=== PATIENT | female | born 2005 | race Caucasian/White ===

== ENCOUNTER 2024-07-30 20:33 | Emergency (ER) | payer MEDICAID, SELFPAY ==
[2024-07-30 20:36] VITALS: BMI 19.7
[2024-07-30 20:45] VITALS: BP 138/77; PULSE 77; RESP 18; TEMP 36.7; O2SAT 100
--- NOTE | 2024-07-30 20:51 | EKG_ITS ---
[facility] Test Date: 2024-07-30 Pat Name: Carmela Gunderson Department: Room: - Gender: Female Trainer: : 2005 Requested By: Romel Vivas ([facility]) Order Number: [id number] Reading MD: Romel Vivas ([facility]) Measurements Intervals [place]ickery Rate: 81 P: 35 ID: 145 QRS: 33 QRSD: 102 T: 46 QT: 344 QTc: 402 Interpretive Statements SINUS RHYTHM WITH SINUS ARRHYTHMIA No previous ECG available for comparison /store/S0/[id number]
--- NOTE | 2024-07-30 20:53 | PD.EDRME ---
Rapid Medical Screening Exam E Arrival date/time: 07/30/24 20:33 19-year-old female past medical history of anxiety presents emergency department complaining of electrical shocks that go to my chest and throughout my body. Patient also endorses dizziness and shortness of breath. Patient reports symptoms started after she started Wellbutrin medication for anxiety for 5 days with last dose 2 days ago. Chief Complaint: Chest Pain Time Seen by Provider: 07/30/24 20:43 Vital signs: Vital Signs Temperature 98.1 F 07/30/24 20:45 Pulse Rate 77 07/30/24 20:45 Respiratory Rate 18 07/30/24 20:45 Blood Pressure 138/77 H 07/30/24 20:45 Pulse Oximetry (%) 100 07/30/24 20:45 Oxygen Delivery Method Room Air 07/30/24 20:45 Vital signs reviewed by provider: Yes
[2024-07-30 21:24] LABS: Basophils # (Auto) 0.1 Thou/mm3 (0.0-0.2); Basophils % (Auto) 1 % (0-2.5); Eosinophils # (Auto) 0.1 Thou/mm3 (0.0-0.5); Eosinophils % (Auto) 1 % (0-10); Hematocrit 42.7 % (36.0-46.0); Hemoglobin 15.1 g/dL (12.0-16.0); Immature Granulocytes % (Auto) 0 % (0-0); Immature Granulocytes Auto 0.03 Thou/mm3 (0.00-0.00); Lymphocytes # (Auto) 2.9 Thou/mm3 (1.0-4.8); Lymphocytes % (Auto) 31 % (10-50); Mean Corpuscular HGB Conc 35.4 g/dl (31.0-37.0); Mean Corpuscular Hemoglobin 31.5 pg (25.0-35.0); Mean Corpuscular Volume 89 fL (80-100); Monocytes # (Auto) 0.7 Thou/mm3 (0.0-0.8); Monocytes % (Auto) 7 % (0-12); Neutrophils # (Auto) 5.6 Thou/mm3 (1.8-7.7); Neutrophils % (Auto) 60 % (37-80); Nucleated Red Blood Cell % 0 /100 WBC (0); Platelet Count 240 Thou/mm3 (140-440); RDW Standard Deviation 41.8 fL (36.4-46.3); White Blood Count 9.3 Thou/mm3 (3.6-11.0)
[2024-07-30 21:41] LABS: Collection Type, Urine Clean Catch
[2024-07-30 21:43] LABS: Alanine Aminotransferase 25 U/L (10-49); Albumin, Serum 5.1 gm/dL (3.5-5.0); Anion Gap 12 (7-16); Aspartate Amino Transferase 27 U/L (0-34); BUN/Creatinine Ratio 14 Ratio (12-20); Bilirubin,Total 1.5 mg/dL (0.3-1.2); Blood Urea Nitrogen 11 mg/dL (9-23); Calcium 10.5 mg/dL (8.3-10.6); Calcium (Corrected) 10.5 mg/dL (8.5-10.1); Carbon Dioxide 21.9 mMol/L (20.0-31.0); Chloride 105 mMol/L (98-107); Creatinine (Component) 0.8 mg/dL (0.6-1.3); Estimated Creatinine Clearance 91.6 mL/min (>60); Glucose 96 mg/dL (74-106); Osmolality,Calculated 276 (275-295); Potassium 3.8 mMol/L (3.4-5.1); Sodium 139 mMol/L (136-145); Total Protein 8.2 gm/dL (5.7-8.2); eGFR > 60 See Note
[2024-07-30 21:44] LABS: Albumin/Globulin Ratio 1.6 (1.2-2.2); Alkaline Phosphatase 74 U/L (46-116); Globulin 3.1 gm/dL (2.3-3.5)
[2024-07-30 21:53] LABS: Bilirubin,Urine Negative (Negative); Blood,Urine 1+ (Negative); Clarity,Urine Clear (Clear/Hazy); Color,Urine Lt-Yellow (Lt Yel-Yel); Culture Indicated,Urine Not Indicated; Glucose, Urine Negative (Negative); Ketones,Urine 1+ (Negative); Leukocyte Esterase,Urine Positive (Negative); Nitrite,Urine Negative (Negative); Protein,Urine Negative (Neg - Trace); RBC,Urine 2 /hpf (0-3); Specific Gravity,Urine 1.012 (1.001-1.035); Squamous Epithelial Cell,Urine 2 /hpf (0-5); Urobilinogen,Urine Negative mg/dL (0.0-1.0); WBC,Urine 3 /hpf (0-5)
[2024-07-30 21:57] LABS: HCG Qualitative,Urine Negative
[2024-07-30 22:51] LABS: Amphetamine/Methamp Scrn,U Negative (Negative); Barbiturate Screen,Urine Negative (Negative); Benzodiazepines Screen,Urine Negative (Negative); Benzoylecgonine Screen, Ur Negative (Negative); Fentanyl Screen,Urine Negative (Negative); Opiate Screen,Urine Negative (Negative); THC Screen,Urine Negative (Negative)
--- NOTE | 2024-07-30 23:06 | EDNOTE_ITS ---
ED General RME/HPI General Chief complaint: Chest Pain Stated complaint: Possible allergic reaction to Welbutrin Time Seen by Provider: 07/30/24 20:43 Source: patient Arrival date/time: 07/30/24 20:33 19-year-old female past medical history of anxiety presents emergency department complaining of electrical shocks that go to my chest and throughout my body. Patient also endorses dizziness and shortness of breath. Patient reports symptoms started after she started Wellbutrin medication for anxiety for 5 days with last dose 2 days ago. Mode of arrival: ambulatory Limitations: no limitations RME / HPI RME / HPI narrative: 07/30/24 20:33 19-year-old female past medical history of anxiety presents emergency department complaining of electrical shocks that go to my chest and throughout my body. Patient also endorses dizziness and shortness of breath. Patient reports symptoms started after she started Wellbutrin medication for anxiety for 5 days with last dose 2 days ago. Related Data Allergies Allergy/AdvReac Type Severity Reaction Status Date / Time No Known Allergies Allergy Verified 07/30/24 20:35 Review of Systems Review of Systems Systems Reviewed: All systems reviewed, normal except as documented Constitutional Constitutional: Reports system reviewed and no additional complaints, except as documented, Denies body ache(s), Denies chills and Denies fever(s) Eyes Eyes: Reports system reviewed and no additional complaints, except as documented and Denies change in vision ENT Ears, Nose, Mouth, and Throat: Reports system reviewed and no additional complaints, except as documented, Denies disequilibrium, Denies dizziness, Denies sore throat and Denies vertigo Cardiovascular Cardiovascular: Reports system reviewed and no additional complaints, except as documented, Reports chest pain and Reports dyspnea Respiratory Respiratory: Reports system reviewed and no additional complaints, except as documented, Denies chest congestion, Denies cough and Reports dyspnea Gastrointestinal Gastrointestinal: Reports system reviewed and no additional complaints, except as documented, Denies abdominal pain, Denies nausea and Denies vomiting Musculoskeletal Musculoskeletal: Reports system reviewed and no additional complaints, except as documented, Denies abnormal gait and Denies arthralgias Integumentary/Breasts Skin/Breast: Reports system reviewed and no additional complaints, except as documented, Denies erythema, Denies rash and Denies wounds Neurologic Neurologic: Reports system reviewed and no additional complaints, except as documented, Denies abnormal gait, Denies disequilibrium, Denies dizziness and Denies vertigo Past Medical History Social History SMOKING STATUS: Never smoker ED Exam General Limitations: Present no limitations General appearance: Present alert and in no apparent distress Head Head exam: Present atraumatic Eye Eye exam: Present normal appearance, PERRL and EOMI ENT ENT exam: Present normal exam, normal oropharynx and mucous membranes moist Neck Neck exam: Present normal inspection, full ROM and trachea midline Chest Chest inspection: Present normal inspection and symmetric chest wall rise Respiratory Respiratory exam: Present normal lung sounds bilaterally Cardiovascular Cardiovascular exam: Present regular rate, normal rhythm and normal heart sounds Abdominal Exam Abdominal exam: Present soft and normal bowel sounds Extremities Exam Extremities exam: Present normal inspection and full ROM Back Exam Back exam: Present normal inspection and full ROM Neurological Exam Neurological exam: Present alert, oriented X3 and CN II-XII intact Psychiatric Psychiatric exam: Present normal affect and normal mood Skin Skin exam: Present warm, dry, intact and normal color Course Quality Measures none Orders Category Date Time Status EKG (ED ONLY) *Do not use* NOW Care 07/30/24 20:51 Completed EKG (ED Only) Stat Exams 07/30/24 20:51 Draft CBC Stat Lab 07/30/24 21:05 Completed CMP [Comprehensive Metabolic Panel] Stat Lab 07/30/24 21:05 Completed Drug Screen,Urine Stat Lab 07/30/24 21:36 Completed HCG Qualitative,Urine Stat Lab 07/30/24 21:36 Completed Urinalysis, C/S if Indicated Stat Lab 07/30/24 21:36 Completed Vital Signs Vital signs: Vital Signs Temperature 98.1 F 07/30/24 20:45 Pulse Rate 77 07/30/24 20:45 Respiratory Rate 18 07/30/24 20:45 Blood Pressure 138/77 H 07/30/24 20:45 Pulse Oximetry (%) 100 07/30/24 20:45 Oxygen Delivery Method Room Air 07/30/24 20:45 100% room air within normal limits Procedures -ED EKG Interpretation #1: Date of EK07/30/24 Time of EK:02 Rate: 81 Interpretation: Interpreted by me EKG Impression: Normal sinus rhythm, No acute ST-T changes, No ectopy, No ischemic changes and Normal QRS MDM Patient data External records reviewed:: [facility] previous records Clinical information provided by:: patient and parent Social determinants that could affect healthcare access:: none Patient has the following chronic illnesses:: See chart How is presenting disease/condition affected by chronic disease/condition?: u neffected by Evaluation data The following diagnostics were reviewed and interpreted by me:: lab results and EKG tracing(s) Lab and/or radiology exams considered but not ordered:: Ordered Interpretation Summary: Interpreted by me Medications Medications considered but not ordered:: N/A Medication administrations:: n/a Consultations Consultation(s) initiated? (list below): No Diagnosis Differential Diagnosis ED Complaint MDM: Noncardiac chest pain, gallstones, pneumonia Most likely diagnosis given after review of the tests above:: Medication side effect Admission Indicated Admission indicated?: not indicated Explain why admission is indicated or not indicated:: No admission criteria Admission Request Was there a request for admission?: No Disposition Plan Disposition Plan: Discharge Discharge Attestation Discharge Attestation: The patient and all family members were given an opportunity to ask questions and understood the discharge instructions. Discharge instructions specifically effects, indications for sooner follow up or return to the emergency department, and the expected course of current diagnosis. Patient condition: Stable Medical Decision Making MDM Narrative MDM Narrative: 19-year-old female past medical history of anxiety presents emergency department complaining of electrical shocks that go to my chest and throughout my body. Patient also endorses dizziness and shortness of breath. Patient reports symptoms started after she started Wellbutrin medication for anxiety for 5 days with last dose 2 days ago. CBC unremarkable for any leukocytosis or anemia. CMP unremarkable other than total bili 1.5 patient is abdomen is soft and nontender. EKG sinus rhythm. No adventitious lung sounds on auscultation. Urinalysis and toxicology unremarkable. Patient GCS of 15 with no SI or HI. Patient likely having side effects from previously taking Wellbutrin. Patient appears nontoxic and is hemodynamically stable. Differential Diagnosis Differential Diagnosis: Noncardiac chest pain, gallstones, pneumonia Lab Data 07/30/24 21:05 07/30/24 21:05 Labs: Lab Results 07/30/24 07/30/24 Range/Units 21:05 21:36 WBC 9.3 (3.6-11.0) Thou/mm3 RBC 4.80 (4.00-5.20) Miln/mm3 Hgb 15.1 (12.0-16.0) g/dL Hct 42.7 (36.0-46.0) % MCV 89 (80-100) fL MCH 31.5 (25.0-35.0) pg MCHC 35.4 (31.0-37.0) g/dl RDW Std Deviation 41.8 (36.4-46.3) fL Plt Count 240 (140-440) Thou/mm3 Neut % (Auto) 60 (37-80) % Lymph % (Auto) 31 (10-50) % [place] % (Auto) 7 (0-12) % Eos % (Auto) 1 (0-10) % Baso % (Auto) 1 (0-2.5) % Neut # (Auto) 5.6 (1.8-7.7) Thou/mm3 Lymph # (Auto) 2.9 (1.0-4.8) Thou/mm3 [place] # (Auto) 0.7 (0.0-0.8) Thou/mm3 Eos # (Auto) 0.1 (0.0-0.5) Thou/mm3 Baso # (Auto) 0.1 (0.0-0.2) Thou/mm3 Immature Gran # (Auto) 0.03 H (0.00-0.00) Thou/mm3 Absolute Nucleated RBC 0.00 (0.00-0.00) Thou/mm3 Immature Gran % 0 (0-0) % Nucleated RBC % 0 (0) /100 WBC Sodium 139 (136-145) mMol/L Potassium 3.8 (3.4-5.1) mMol/L Chloride 105 (98-107) mMol/L Carbon Dioxide 21.9 (20.0-31.0) mMol/L Anion Gap 12 (7-16) BUN 11 (9-23) mg/dL Creatinine 0.8 (0.6-1.3) mg/dL Estim Creat Clear Calc 91.6 (>60) mL/min eGFR > 60 (60 - ) See Note BUN/Creatinine Ratio 14 (12-20) Ratio Glucose 96 (74-106) mg/dL Calculated Osmolality 276 (275-295) Calcium 10.5 (8.3-10.6) mg/dL Corrected Calcium 10.5 H (8.5-10.1) mg/dL Total Bilirubin 1.5 H (0.3-1.2) mg/dL AST 27 (0-34) U/L ALT 25 (10-49) U/L Alkaline Phosphatase 74 (46-116) U/L Total Protein 8.2 (5.7-8.2) gm/dL Albumin 5.1 H (3.5-5.0) gm/dL Globulin 3.1 (2.3-3.5) gm/dL Albumin/Globulin Ratio 1.6 (1.2-2.2) Ur Collection Type Clean Catch Urine Color Lt-Yellow (Lt Yel-Yel) Urine Clarity Clear (Clear/Hazy) Urine pH 6.0 (5.0-7.0) Ur Specific [place] 1.012 (1.001-1.035) Urine Protein Negative (Neg - Trace) Urine Glucose (UA) Negative (Negative) Urine Ketones 1+ A (Negative) Urine Blood 1+ A (Negative) Urine Nitrite Negative (Negative) Urine Bilirubin Negative (Negative) Urine Urobilinogen (Auto) Negative (0.0-1.0) mg/dL Ur Leukocyte Esterase Positive (Negative) Urine RBC 2 (0-3) /hpf Urine WBC 3 (0-5) /hpf Ur Squamous Epith Cells 2 (0-5) /hpf Urine Bacteria None (None) Ur Culture Indicated? Not Indicated Urine HCG, Qual Negative Urine Opiates Screen Negative (Negative) Urine Fentanyl Screen Negative (Negative) Ur Barbiturates Screen Negative (Negative) U Amphetamin/Meth Scrn Negative (Negative) U Benzodiazepines Scrn Negative (Negative) U Cocaine Metab Screen Negative (Negative) U Marijuana (THC) Screen Negative (Negative) Discharge Plan Plan Patient Disposition: HOME (Self Care) Disposition Comment: Stable Prescriptions/Referrals Referrals: No Primary/Family,Physician [Primary Care Provider] - In 1 week Problem List Clinical Impression: Medication side effect Patient/Caregiver Discharge Instructions Discharge Activity: activity as tolerated Education Materials: ED Medicine Reaction: Allergic Additional Instructions: Drink plenty of fluids and get plenty of rest. Follow-up with primary care provider in 2 to 3 days. Return to emergency department for any worsening symptoms or as needed. Print Language: Citizen [place] Stand Alone Forms: [employer] Award Info., Patient Portal Info Letter PA/IAM Supervising Physician PA/IAM Supervising Physician: Dr. Forrest
== END 2024-07-30 23:23 | disposition home or self-care (01) ==
PROVIDERS: Emergency Provider Emergency Medicine
DX: R07.9 Chest pain, unspecified (principal); T43.295A Adverse effect of other antidepressants, initial encounter; R42 Dizziness and giddiness; R06.02 Shortness of breath; F41.9 Anxiety disorder, unspecified
CPT/HCPCS: 36415; 80053; 80307; 81001; 81025; 85025; 93005; 99283